=== PATIENT | female | born 1955 | race Caucasian/White ===

== ENCOUNTER 2024-02-09 12:01 | Emergency (ER) | payer OTHER ==
[~2024-02-09] VITALS: Ht 167.6 cm; Wt 74.5 kg
[2024-02-09 13:15] LABS: Basophils # (auto) 0.1 10 ^3/uL (0-0.2); Basophils % (auto) 1.1 % (0.0-2.0); Eosinophils # (auto) 0.2 10 ^3/uL (0-0.8); Eosinophils % (auto) 1.5 % (0.0-7.0); Hematocrit 42.4 % (36.0-46.0); Hemoglobin 13.8 g/dL (12.2-16.2); Lymphocytes # (auto) 2.1 10 ^3/uL (0.4-5.4); Lymphocytes % (auto) 18.5 % (10.0-50.0); Mean Corpuscular Hgb Conc. 32.5 g/dL (32.0-36.0); Mean Corpuscular Volume 92.3 fL (80.0-100.0); Monocytes % (auto) 9.4 % (0.0-12.0); Neutrophils # (auto) 7.7 10 ^3/uL (1.6-8.6); Neutrophils % (auto) 69.5 % (37.0-80.0); Nucleated Red Blood Cells % 0.1 %; Red Blood Cells 4.59 10^6/uL (4.0-5.20); Red Cell Distribution Width 13.6 % (11.8-14.3); White Blood Cell 11.1 10^3/uL (4.4-10.8)
[2024-02-09 13:30] LABS: Alanine Aminotransferase 13 U/L (7-40); Albumin 4.4 g/dL (3.2-4.8); Alkaline Phosphatase 180 U/L (46-116); Anion Gap 5 (5-15); Aspartate Aminotransferase 12 U/L (13-40); BUN/Creatinine Ratio 10.5 (10.0-20.0); Blood Urea Nitrogen 6 mg/dL (9-23); Calcium 9.8 mg/dL (8.5-10.1); Carbon Dioxide 30 mmol/L (20-30); Chloride 105 mmol/L (98-107); Glucose 125 mg/dL (74-106); Potassium 4.1 mmol/L (3.5-5.1); Sodium 140 mmol/L (136-145)
[2024-02-09 13:31] LABS: Bilirubin, Total 0.3 mg/dL (0.2-1.0); Total Protein 6.1 g/dL (5.7-8.2)
[2024-02-09 13:32] LABS: INR 1.09 (0.9-1.15); Prothrombin Time 11.5 sec (9.3-11.8)
[2024-02-09 15:45] VITALS: BP 159/92; PULSE 85; RESP 16; TEMP 98.2; O2SAT 95
== END 2024-02-09 17:38 | disposition left against medical advice (07) ==
LOC: ER 12:01
DX: S00.83XD Contusion of other part of head, subsequent encounter (principal); F20.9 Schizophrenia, unspecified; F17.210 Nicotine dependence, cigarettes, uncomplicated; W18.30XD Fall on same level, unspecified, subsequent encounter
CPT/HCPCS: 36415; 80053; 85025; 85610

== ENCOUNTER 2024-11-22 21:07 | Emergency (ER) | payer OTHER ==
[~2024-11-22] VITALS: Ht 162.6 cm; Wt 72.7 kg
[2024-11-22 22:39] VITALS: BP 155/75; PULSE 92; RESP 14; TEMP 98.1; O2SAT 92
--- NOTE | 2024-11-22 22:44 | ED.PDOC ---
History of Present Illness(SKN HPI Comments 69-year-old female presents to ER with complaints of rash x2 months. Patient presents VIA EMS, reporting that she has been experiencing a red itchy rash to bilateral lower legs x "2 months". Reports that she has been using [id number] calamine lotion on the rash with slight relief. Denies any pain. Denies fever, body aches, chills, skin drainage, known allergies, use of new soaps/detergents or any further symptoms/complaints Chief Complaint: Rash Time Seen by MD: 21:33 Primary Care Provider: ADDISON History of Present Illness: Nurses Notes, Medications, Allergies Allergies: Coded Allergies: NO KNOWN ALLERGIES (Unverified , 10/18/14) Home Meds Active Scripts Prednisone (Prednisone) 10 Mg Tab, 10 MG PO BID for 5 Days, #10 TAB 0 Refills Prov:JACQUI OROZCO 11/22/24 Loratadine (Claritin) 10 Mg Cap, 10 MG PO DAILY PRN, #24 CAP 0 Refills Prov:JACQUI OROZCO 11/22/24 Cephalexin Monohydrate (Cephalexin) 500 Mg Cap, 1 CAP PO BID for 7 Days, #14 CAP 0 Refills Prov:JACQUI OROZCO 11/22/24 Information Source: Patient Mode of Arrival: Ambulatory Past Medical History PAST MEDICAL HISTORY: CVA, Schizophrenia 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 History Family History Family History: Unknown Social History Smoker: Cigarettes, Less Than 1 Pack/Day Alcohol: Occasionally Drugs: Denies Drug Use Lives In: Home Constitutional: denies: chills, diaphoresis, fatigue, fever, malaise, sweats, weakness, others EENTM: denies: blurred vision, double vision, ear bleeding, ear discharge, ear drainage, ear pain, ear ringing, eye pain, eye redness, hearing loss, mouth pain, mouth swelling, nasal discharge, nose bleeding, nose congestion, nose pain, photophobia, tearing, throat pain, throat swelling, voice changes, others Respiratory: denies: cough, hemoptysis, orthopnea, SOB at rest, shortness of breath, SOB with excertion, stridor, wheezing, others Cardiovascular: denies: chest pain, dizzy spells, diaphoresis, Dyspnea on exertion, edema, irregular heart beat, left arm pain, lightheadedness, palpitations, PND, syncope, others Gastrointestinal: denies: abdomen distended, abdominal pain, blood streaked bowels, constipated, diarrhea, dysphagia, difficulty swallowing, hematemesis, melena, nausea, poor appetite, poor fluid intake, rectal bleeding, rectal pain, vomiting, others Genitourinary: denies: abnormal vagina bleeding, burning, dyspareunia, dysuria, flank pain, frequency, hematuria, incontinence, pain, , vagina discharge, urgency, others Neurological: denies: dizziness, fainting, headache, left sided numbness, left sided weakness, numbness, paresthesia, pre-existing deficit, right sided num bness, right sided weakness, seizure, speech problems, tingling, tremors, weakness, others Musculoskeletal: denies: back pain, gout, joint pain, joint swelling, muscle pain, muscle stiffness, neck pain, others Integumetry: reports: others ( STATED IN HPI) Allergic/Immunocompromised: denies: Difficulty Healing, Frequent Infections, Hives, Itching, others Hematologic/Lymphatic: denies: anemia, blood clots, easy bleeding, easy bruising, swollen glands, others Endocrine: denies: excessive hunger, excessive sweating, excessive thirst, excessive urination, flushing, intolerance to cold, intolerance to heat, unexplained weight gain, unexplained weight loss, others Psychiatric: denies: anxiety, bipolar disorder, depression, hopeless, panic disorder, schizophrenia, sleepless, suicidal, others Physical Exam General Appearance: No Apparent Distress HEENT: PERRL/EOMI Neck: Full Range of Motion, Non-Tender, Normal Respiratory: Chest Non-Tender, Lungs Clear, No Accessory Muscle Use, No Respiratory Distress, Normal Breath Sounds Cardiovascular: No Murmur, No Gallop, Regular Rate/Rhythm Breast Exam: Deferred Gastrointestinal: NOT DONE Genitalia: Deferred Pelvic: Deferred Rectal: Deferred Extremities: Normal capillary refill, Normal range of motion Neurologic: Alert, No Motor Deficits, Normal Affect, Normal Mood, No Sensory Deficits Cerebellar Function: Normal Reflexes: Normal Skin: Dry, Warm, Other (Mild erythema/minimal swelling and mild lichenification noted to anterior aspects of bilateral tibias that patient is noted to be itching. No papules/vesicles/bullae/skin drainage or open wounds noted) Peripheral Pulses: 2+ Radial (R), 2+ Radial (L), 2+ Brachial (R), 2+ Brachial (L) Lymphatic: No Adenopathy Was a procedure done? 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 IN 1-2 DAYS PATIENT VERBALIZED UNDERSTANDING AND AGREEABLE WITH CURRENT PLAN OF CARE ADVISED TO RETURN TO ER IMMEDIATELY IF SYMPTOMS WORSEN Time of 1ST Reevaluation: 22:42 Reevaluation 1ST: N/A Patient Education/Counseling: Diagnosis, Treatment, Prognosis, Need For Follow Up Family Education/Counseling: No Family Present Departure 1 Departure Time of Disposition: 22:54 Impression: Primary Impression: Contact dermatitis Qualified Codes: L25.9 - Unspecified contact dermatitis, unspecified cause Disposition: HOME / SELF CARE / HOMELESS Condition: Stable e-Prescriptions Prednisone (Prednisone) 10 Mg Tab 10 MG PO BID for 5 Days, #10 TAB 0 Refills Prov: JACQUI OROZCO 11/22/24 Loratadine (Claritin) 10 Mg Cap 10 MG PO DAILY PRN, #24 CAP 0 Refills Prov: JACQUI OROZCO 11/22/24 Cephalexin Monohydrate (Cephalexin) 500 Mg Cap 1 CAP PO BID for 7 Days, #14 CAP 0 Refills Prov: JACQUI OROZCO 11/22/24 Discharged With: Machine Filler Critical Care Note Critical Care Time?: No Stability Stability form required: No Heart Score Heart Score: Heart Score Response (Comments) Value History N/A 0 EKG N/A 0 Age N/A 0 Risk Factors N/A 0 Troponin N/A 0 Total 0 JACQUI OROZCO Nov 22, 2024 22:44
[2024-11-22] MEDS ORDERED: LORA10CA PO (22:52)
[2024-11-22] MEDS ORDERED: CEPH500C PO (22:52)
[2024-11-22] MEDS ORDERED: PRED10TA PO (22:52)
[2024-11-22] MEDS: cefTRIAXone SOD 1,000 MG VL IM ONE (22:59)
[2024-11-22] MEDS: methylPREDNISolone SOD SUCC 125 MG/2 ML VL IM ONE (22:59)
== END 2024-11-22 23:26 | disposition home or self-care (01) ==
LOC: ER 21:07 → EDBD 21:07 → ER 23:26
DX: L25.9 Unspecified contact dermatitis, unspecified cause (principal); F20.9 Schizophrenia, unspecified; F17.210 Nicotine dependence, cigarettes, uncomplicated; Z79.52 Long term (current) use of systemic steroids; Z98.890 Other specified postprocedural states
CPT/HCPCS: 96372; 99284; J0696; J2919

== ENCOUNTER 2024-12-08 10:50 | Emergency (ER) | payer OTHER ==
[~2024-12-08] VITALS: Ht 165.1 cm; Wt 90.0 kg
[~2024-12-08 10:50] MED LIST: CEPH500C PO; LORA10CA PO; PRED10TA PO
[2024-12-08 11:59] VITALS: BP 137/67; PULSE 97; RESP 17; TEMP 97.9; O2SAT 95
--- NOTE | 2024-12-08 12:09 | ED.PDOC ---
History of Present Illness(SKN HPI Comments A 69 YEAR OLD FEMALE BROUGHT IN BY AMBULANCE PRESENTS TO THE ED WITH COMPLAINT OF RASH. PATIENT STATES SHE HAS BEEN EXPERIENCING A RASH ON HER BILATERAL LEGS FOR THE PAST 2 WEEKS. PATIENT REPORTS SHE HAS BEEN EXPERIENCING ITCHING A RESULT OF HIS RASH AND HAS TRIED APPLYING CALAMINE LOTION TO THE RASH WITH MINIMAL IMPROVEMENT. PATIENT DENIES FEVER, CHILLS, SHORTNESS OF BREATH, CHEST PAIN, ABDOMINAL PAIN, NAUSEA, VOMITING, HEADACHE, OR OTHER COMPLAINTS. NO OTHER SYMPTOMS OR MODIFYING FACTORS AT THIS TIME. PATIENT IS ALERT, ORIENTED X 4, AND HAS STEADY GAIT. Chief Complaint: Rash Time Seen by MD: 11:09 Primary Care Provider: ADDISON History of Present Illness: Nurses Notes, Network Administrator Notes, Medications, Allergies Allergies: Coded Allergies: NO KNOWN ALLERGIES (Unverified , 10/18/14) Home Meds Active Scripts Cephalexin Monohydrate (Cephalexin) 500 Mg Cap, 1 CAP PO QID, #40 CAP Prov:HANNA GRANADO 12/08/24 Levofloxacin Hemihydrate (LEVAQUIN 500 MG) 500 Mg Tab, 1 TAB PO DAILY, #10 TAB Prov:HANNA GRANADO 12/08/24 Methylprednisolone (Medrol Dosepak) 4 Mg Hiram, 4 MG PO UD, #21 TAB UAD Prov:HANNA GRANADO 12/08/24 Prednisone (Prednisone) 10 Mg Tab, 10 MG PO BID for 5 Days, #10 TAB 0 Refills Prov:JACQUI OROZCO 11/22/24 Loratadine (Claritin) 10 Mg Cap, 10 MG PO DAILY PRN, #24 CAP 0 Refills Prov:JACQUI OROZCO 11/22/24 Cephalexin Monohydrate (Cephalexin) 500 Mg Cap, 1 CAP PO BID for 7 Days, #14 CAP 0 Refills Prov:JACQUI OROZCO 11/22/24 Information Source: Patient, Emergency Med Personnel Mode of Arrival: EMS Severity: Moderate Timing: Weeks Duration: Since onset Prehospital treatment: None Location: Leg (BILATERAL LOWER LEGS) Mechanism: Spontaneous Onset Developed: Rash Occurence: Indoors Object: None Condition of Object: None Retained Foreign Body: No Wound Type: None Immunization Status of Animal: NA Tetanus: Unknown History of: None Associated Signs and Symptoms: Redness, Pain Past Medical History PAST MEDICAL HISTORY: CVA, Schizophrenia 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 ELECTRONIC CONTROLS REPAIRER SUPERVISOR History Family History Family History: Reviewed,noncontributory to illness Social History Smoker: Cigarettes, Less Than 1 Pack/Day Alcohol: Occasionally Drugs: Denies Drug Use Lives In: Home Constitutional: denies: chills, diaphoresis, fatigue, fever, malaise, sweats, weakness, others EENTM: denies: blurred vision, double vision, ear bleeding, ear discharge, ear drainage, ear pain, ear ringing, eye pain, eye redness, hearing loss, mouth p ain, mouth swelling, nasal discharge, nose bleeding, nose congestion, nose pain, photophobia, tearing, throat pain, throat swelling, voice changes, others Respiratory: denies: cough, hemoptysis, orthopnea, SOB at rest, shortness of br eath, SOB with excertion, stridor, wheezing, others Cardiovascular: denies: chest pain, dizzy spells, diaphoresis, Dyspnea on exertion, edema, irregular heart beat, left arm pain, lightheadedness, palpitations, PND, syncope, others Gastrointestinal: denies: abdomen distended, abdominal pain, blood streaked bowels, constipated, diarrhea, dysphagia, difficulty swallowing, hematemesis, melena, nausea, poor appetite, poor fluid intake, rectal bleeding, rectal pain, vomiting, others Genitourinary: denies: abnormal vagina bleeding, burning, dyspareunia, dysuria, flank pain, frequency, hematuria, incontinence, pain, , vagina discharge, urgency, others Neurological: denies: dizziness, fainting, headache, left sided numbness, left sided weakness, numbness, paresthesia, pre-existing deficit, right sided numbness, right sided weakness, seizure, speech problems, tingling, tremors, weakness, others Musculoskeletal: denies: back pain, gout, joint pain, joint swelling, muscle pain, muscle stiffness, neck pain, others Integumetry: reports: rash (RASH OF BILATERAL LOWER LEGS); denies: bruises, change in color, change in hair/nails, dryness, laceration, lesions, lumps, wounds, others Allergic/Immunocompromised: denies: Difficulty Healing, Frequent Infections, Hives, Itching, others Hematologic/Lymphatic: denies: anemia, blood clots, easy bleeding, easy bruising, swollen glands, others Endocrine: denies: excessive hunger, excessive sweating, excessive thirst, excessive urination, flushing, intolerance to cold, intolerance to heat, unexplained weight gain, unexplained weight loss, others Psychiatric: denies: anxiety, bipolar disorder, depression, hopeless, panic disorder, schizophrenia, sleepless, suicidal, others All Other Systems: Reviewed and Negative Physical Exam General Appearance: No Apparent Distress, Normal HEENT: Normal ENT Inspection, PERRL/EOMI, Pharynx Normal, TMs Normal Neck: Full Range of Motion, Non-Tender, Normal, Normal Inspection Respiratory: Chest Non-Tender, Lungs Clear, No Accessory Muscle Use, No Respiratory Distress, Normal Breath Sounds Cardiovascular: No Edema, No JVD, No Murmur, No Gallop, Normal Peripheral Pulses, Regular Rate/Rhythm Breast Exam: Deferred Gastrointestinal: No Organomegaly, Non Tender, No Pulsatile Mass, Normal Bowel Sounds, Soft Genitalia: Deferred Pelvic: Deferred Rectal: Deferred Extremities: No calf tenderness, Normal capillary refill, Normal range of motion, No pedal edema, Tender (WITH SKIN RASH ON BILATERAL LOWER LEG, NO SWELLING AND OPEN WOUND, NO DVT SIGNS. 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 ), Warm Peripheral Pulses: 2+ carotid (R), 2+ carotid (L), 2+ dorsalis pedis (R), 2+ dorsalis pedis (L) Lymphatic: No Adenopathy Was a procedure done? Was a procedure done?: No Differential Diagnosis (INTG) Differential Diagnosis: Atopic dermatitis, Cellulitis, Contact Dermatitis, Erysipelas, Tinea, Urticaria Differential Diagnosis: N/A Abscess: N/A Differential Diagnosis: N/A X-Ray, Labs, Meds, VS Vital Signs Date Time Temp Pulse Resp B/P (MAP) Pulse Ox O2 Delivery O2 Flow Rate FiO2 12/08/24 11:59 97 17 95 Room Air 12/08/24 11:59 97.9 97 17 137/67 (90) 97 97.9 12/08/24 11:00 97.7 103 16 133/65 (87) 80 97.7 Current Medications Medications (Trade) Dose Ordered Sig/Aroldo Route Start Time Stop Time Status Last Admin Ceftriaxone Sodium (Rocephin) 1,000 mg ONCE ONCE IM 12/08/24 12:15 12/08/24 12:16 DC 12/08/24 12:25 Lidocaine HCl (Xylocaine 1%) 20 ml ONCE ONCE IJ 12/08/24 12:30 12/08/24 12:31 DC 12/08/24 12:31 X-Ray, Labs, Meds, VS Comment EXTERNAL MEDICAL RECORDS REVIEWED: [NONE] INDEPENDENT HISTORIANS: [NONE] SOCIAL DETERMINANTS OF HEALTH: [NONE] LABS ORDERED: NONE REVIEWED AND INTERPRETED RESULTS: NONE IMAGING ORDERED: NONE TREATMENTS ORDERED: ROCEPHIN 1 G IM PROCEDURES PERFORMED: NONE CRITICAL CARE TIME: NONE I HAVE DISCUSSED THE PATIENT WITH THE ATTENDING PHYSICIAN DR. SALINAS AND ALEX HAWLEY WITH THE PATIENT'S PLAN OF CARE AND DISPOSITION. BASED ON HISTORY OF PRESENT ILLNESS, AND PHYSICAL EXAM, PATIENT WILL BE DISCHARGED HOME. DISCUSSED PLAN FOR DISCHARGE HOME WITH RX [KEFLEX, LEVAQUIN AND MEDROL DOSE PACK]. MEDICATION WARNINGS GIVEN. SHARED DECISION MAKING: PATIENT INSTRUCTED TO FOLLOW UP WITH PRIMARY CARE PROVIDER IN 1-2 DAYS FOR RE-EVALUATION OF SYMPTOMS. PATIENT VERBALIZES UNDERSTANDING TO RETURN TO ED FOR NEW OR WORSENING SYMPTOMS OR IF FOLLOW UP WITH PCP CANNOT BE OBTAINED. PATIENT FEELS COMFORTABLE GOING HOME AT THIS TIME. ALL QUESTIONS ADDRESSED AT TIME OF DISCHARGE. Time of 1ST Reevaluation: 12:50 Reevaluation 1ST: Improved Patient Education/Counseling: Diagnosis, Treatment, Need For Follow Up Family Education/Counseling: Diagnosis, Treatment, Need For Follow Up Medical Screening: No EMC Exist At This Time Departure 1 Departure Time of Disposition: 13:00 Impression: Primary Impression: Contact dermatitis Qualified Codes: L25.9 - Unspecified contact dermatitis, unspecified cause Additional Impression: Suspected soft tissue infection Disposition: HOME / SELF CARE / HOMELESS Condition: Stable Additional Instructions: FOLLOW-UP WITH PCP IN 1 TO 2 DAYS. TAKE MEDICATIONS PRESCRIBED. RETURN TO ED FOR ANY NEW OR WORSENING SYMPTOMS. e-Prescriptions Cephalexin Monohydrate (Cephalexin) 500 Mg Cap 1 CAP PO QID, #40 CAP Prov: HANNA GRANADO 12/08/24 Levofloxacin Hemihydrate (LEVAQUIN 500 MG) 500 Mg Tab 1 TAB PO DAILY, #10 TAB Prov: HANNA GRANADO 12/08/24 Methylprednisolone (Medrol Dosepak) 4 Mg Hiram 4 MG PO UD, #21 TAB UAD Prov: HANNA GRANADO 12/08/24 Discharged With: Self Critical Care Note Critical Care Time?: No Stability Stability form required: No I personally scribed for HANNA GRANADO ([email or web address]) on 12/08/24 at 12:09. Electronically submitted by Refugio Brady ([email or web address]). HANNA GRANADO Dec 08, 2024 12:09
[2024-12-08] MEDS: cefTRIAXone SOD 1,000 MG VL IM ONE (12:25)
[2024-12-08] MEDS: LIDOCAINE 1% HCL (LOCAL ANESTH.) INJ 20ML MDV IJ ONE (12:31)
[2024-12-08] MEDS ORDERED: LEVO500T91 PO (12:35)
[2024-12-08] MEDS ORDERED: METH4PAK PO (12:35)
[2024-12-08] MEDS ORDERED: CEPH500C PO (12:35)
== END 2024-12-08 12:43 | disposition home or self-care (01) ==
LOC: EDBD 10:50 → ER 10:50
DX: L25.9 Unspecified contact dermatitis, unspecified cause (principal); F17.210 Nicotine dependence, cigarettes, uncomplicated; F20.9 Schizophrenia, unspecified; Z86.73 Personal history of transient ischemic attack (TIA), and cerebral infarction without residual deficits; Z98.890 Other specified postprocedural states; Z79.52 Long term (current) use of systemic steroids; Z79.899 Other long term (current) drug therapy
CPT/HCPCS: 96372; 99283; J0696; J2003

== ENCOUNTER 2024-12-25 11:13 | Emergency (ER) | payer OTHER ==
[~2024-12-25] VITALS: Ht 172.7 cm; Wt 75.0 kg
[~2024-12-25 11:13] MED LIST changes: +LEVO500T91 PO; +METH4PAK PO
--- NOTE | 2024-12-25 11:19 | ECG ---
[facility] Test Date: 2024-12-25 Test Time: 11:15:53 Pat Name: DANNA CARPIO Department: ED Room: Gender: F [place]: ORA : 1955 Requested By: LYNETTE RANDALL Order Number: [id number] Reading MD: Joe Lazaro Measurements Intervals [place] Rate: 101 P: 64 IN: 120 QRS: 57 QRSD: 82 T: 0 QT: 357 QTc: 463 Interpretive Statements Sinus tachycardia Probable anterior infarct, old Repol abnrm suggests ischemia, diffuse leads Electronically Signed On 12-27-2024 12:45:46 PDT by Joe Lazaro Please click the below link to view image of tracing.
[2024-12-25 11:28] VITALS: RESP 19; O2SAT 93
[2024-12-25 11:48] LABS: Chloride 102 mmol/L (98-107); Potassium 3.6 mmol/L (3.5-5.1); Sodium 143 mmol/L (136-145)
--- NOTE | 2024-12-25 11:48 | ED.PDOC ---
HPI Comments 69-year-old female who comes in with chief complaint of chest pain today. The patient states that she was at home and then started to experience some left- sided chest pain this morning. The patient denies any trauma. The pain happened at rest. The pain does not increase with palpation and is nonradiating. She denies any shortness a breath, nausea, vomiting or fever. She states that she has had this chest pain in the past. EN route, the paramedics gave the patient aspirin as well as one nitroglycerin. Initially she stated that the pain was an 8/10 and now the pain is down Chief Complaint: Chest Pain Time Seen by MD: 11:20 Primary Care Provider: UNKNOWN Reviewed Notes: Nurses Notes, [employer] Operator Notes, Medications, Allergies (No allergies to medications) Allergies: Coded Allergies: NO KNOWN ALLERGIES (Unverified , 10/18/14) Home Meds Active Scripts Levofloxacin Hemihydrate (LEVAQUIN 500 MG) 500 Mg Tab, 1 TAB PO DAILY, #10 TAB Prov:MADIHA MOSQUERA MD 12/25/24 Cephalexin Monohydrate (Cephalexin) 500 Mg Cap, 1 CAP PO QID, #40 CAP Prov:HANNA GRANADO 12/08/24 Levofloxacin Hemihydrate (LEVAQUIN 500 MG) 500 Mg Tab, 1 TAB PO DAILY, #10 TAB Prov:HANNA GRANADO 12/08/24 Methylprednisolone (Medrol Dosepak) 4 Mg [place], 4 MG PO UD, #21 TAB UAD Prov:HANNA GRANADO 12/08/24 Prednisone (Prednisone) 10 Mg Tab, 10 MG PO BID for 5 Days, #10 TAB 0 Refills Prov:JACQUI OROZCO 11/22/24 Loratadine (Claritin) 10 Mg Cap, 10 MG PO DAILY PRN, #24 CAP 0 Refills Prov:JACQUI OROZCO 11/22/24 Cephalexin Monohydrate (Cephalexin) 500 Mg Cap, 1 CAP PO BID for 7 Days, #14 CAP 0 Refills Prov:JACQUI OROZCO 11/22/24 Information Source: Emergency Med Personnel Mode of Arrival: EMS Severity: Moderate Timing: Hours Duration: Since onset Prehospital treatment: 12 Lead EKG, ASA, Oral And Maxillofacial Surgeon, NTG Location: Chest (L) Radiation: No Radiation Quality: Squeezing, Pressure Onset: At Rest Cardiac Risk Factors: Smoker, HTN, Diabetes History of: Similar pain in past Modifying Factors: Nothing Associated Signs and Symptoms: None Past Medical History PAST MEDICAL HISTORY: CVA, Depression, DM, Schizophrenia Surgical History: , Tonsillectomy Surgical History (Other): Stomach mass removal [employer] History: No Pertinent [employer] History Family History Family History: Unknown Social History Smoker: Cigarettes, Less Than 1 Pack/Day Alcohol: Occasionally Drugs: Marijuana Lives In: Home Constitutional: denies: chills, diaphoresis, fatigue, fever, malaise, sweats, weakness, others EENTM: denies: blurred vision, double vision, ear bleeding, ear discharge, ear drainage, ear pain, ear ringing, eye pain, eye redness, hearing loss, mouth pain, mouth swelling, nasal discharge, nose bleeding, nose congestion, nose pain , photophobia, tearing, throat pain, throat swelling, voice changes, others Respiratory: denies: cough, hemoptysis, orthopnea, SOB at rest, shortness of breath, SOB with excertion, stridor, wheezing, others Cardiovascular: reports: chest pain; denies: dizzy spells, diaphoresis, Dyspnea on exertion, edema, irregular heart beat, left arm pain, lightheadedness, palpitations, PND, syncope, others Gastrointestinal: denies: abdomen distended, abdominal pain, blood streaked bowels, constipated, diarrhea, dysphagia, difficulty swallowing, hematemesis, melena, nausea, poor appetite, poor fluid intake, rectal bleeding, rectal pain, vomiting, others Genitourinary: denies: abnormal vagina bleeding, burning, dyspareunia, dysuria, flank pain, frequency, hematuria, incontinence, pain, , vagina discharge, urgency, others Neurological: denies: dizziness, fainting, headache, left sided numbness, left sided weakness, numbness, paresthesia, pre-existing deficit, right sided numbness, right sided weakness, seizure, speech problems, tingling, tremors, weakness, others Musculoskeletal: denies: back pain, gout, joint pain, joint swelling, muscle pain, muscle stiffness, neck pain, others Integumetry: denies: bruises, change in color, change in hair/nails, dryness, laceration, lesions, lumps, rash, wounds, others Allergic/Immunocompromised: denies: Difficulty Healing, Frequent Infections, Hives, Itching, others Hematologic/Lymphatic: denies: anemia, blood clots, easy bleeding, easy bruising, swollen glands, others Endocrine: denies: excessive hunger, excessive sweating, excessive thirst, excessive urination, flushing, intolerance to cold, intolerance to heat, unexplained weight gain, unexplained weight loss, others Psychiatric: denies: anxiety, bipolar disorder, depression, hopeless, panic disorder, schizophrenia, sleepless, suicidal, others Physical Exam General Appearance: Moderate Distress, Obese HEENT: Normal ENT Inspection, Pharynx Normal, TMs Normal Neck: Full Range of Motion, Non-Tender, Normal, Normal Inspection Respiratory: Chest Non-Tender, Lungs Clear, No Accessory Muscle Use, No Respiratory Distress, Normal Breath Sounds Cardiovascular: No Edema, No JVD, No Murmur, No Gallop, Normal Peripheral Pulses, Regular Rate/Rhythm Breast Exam: Deferred Gastrointestinal: No Organomegaly, Non Tender, No Pulsatile Mass, Normal Bowel Sounds, Soft Genitalia: Deferred Pelvic: Deferred Rectal: Deferred Extremities: No calf tenderness, Normal capillary refill, Normal inspection, Normal range of motion, Non-tender, No pedal edema Musculoskeletal : Apperance: Normal Neurologic: Alert, axle inspector II-XII nml as Tested, Motor Weakness, Normal Affect, Normal Mood, No Sensory Deficits Cerebellar Function: Normal Reflexes: Normal Skin: Dry, Normal Color, Warm Lymphatic: No Adenopathy EKG EKG : Pulse Rate (adult): 101 [place]: Normal Cardiac Rhythm: ST Block: None ST: Nonsp Was a procedure done? Was a procedure done?: No CP Differential Dx Differential Diagnosis: Angina, MT Differential Diagnosis: CHF X-Ray, Labs, Meds, VS Vital Signs Date Time Temp Pulse Resp B/P (MAP) Pulse Ox O2 Delivery O2 Flow Rate FiO2 12/25/24 14:41 98.5 103 17 137/72 (93) 92 98.5 12/25/24 13:43 98.5 95 16 111/69 (83) 93 98.5 12/25/24 12:22 98 12/25/24 12:18 101 12/25/24 11:28 98.3 108 19 107/71 (83) 3 98.3 12/25/24 11:28 19 93 Room Air* 0 21 12/25/24 11:15 101 12/25/24 11:13 98.3 108 19 107/71 (83) 93 98.3 Lab Test 12/25/24 13:03 12/25/24 12:50 12/25/24 11:28 Range/Units Troponin I High Sensitivity 12 12 </=34 ng/L Urine Color Colorless Yellow Urine Clarity Clear Clear Urine pH 6.5 5.0-9.0 Urine Specific [place] 1.008 1.001-1.035 Urine Protein Negative Negative Urine Ketones Negative Negative Urine Blood Negative Negative /uL Urine Nitrite Negative Negative Urine Bilirubin Negative Negative Urine Urobilinogen Normal Negative mg/dL Urine Leukocyte Esterase Negative Negative /uL Urine RBC <1 0 - 4 /hpf Urine Microscopic WBC < 1 0-5 /HPF Urine Squamous Epithelial Cells Few <5 /hpf Urine Bacteria Few H None Seen /hpf Urine Glucose Normal Normal mg/dL White Blood Count 11.0 H 4.4-10.8 10^3/uL Red Blood Count 5.85 H 4.0-5.20 10^6/uL Hemoglobin 11.4 L 12.2-16.2 g/dL Hematocrit 38.6 36.0-46.0 % Mean Corpuscular Volume 66.0 L 80.0-100.0 fL Mean Corpuscular Hemoglobin 19.5 L 28.0-32.0 pg Mean Corpuscular Hemoglobin Concent 29.6 L 32.0-36.0 g/dL Red Cell Distribution Width 22.4 H 11.8-14.3 % Platelet Count 427 140-450 10^3/uL Mean Platelet Volume 6.8 L 6.9-10.8 fL Neutrophils (%) (Auto) 69.5 37.0-80.0 % Lymphocytes (%) (Auto) 18.3 10.0-50.0 % Monocytes (%) (Auto) 9.4 0.0-12.0 % Eosinophils (%) (Auto) 1.4 0.0-7.0 % Basophils (%) (Auto) 1.4 0.0-2.0 % Neutrophils # (Auto) 7.6 1.6-8.6 10 ^3/uL Lymphocytes # (Auto) 2.0 0.4-5.4 10 ^3/uL Monocytes # (Auto) 1.0 0-1.3 10 ^3/uL Eosinophils # (Auto) 0.2 0-0.8 10 ^3/uL Basophils # (Auto) 0.2 0-0.2 10 ^3/uL Nucleated Red Blood Cells 0.0 % Platelet Estimate Adequate Hypochromasia (manual) Marked Anisocytosis (manual) Slight Microcytosis Marked Sodium Level 143 136-145 mmol/L Potassium Level 3.6 3.5-5.1 mmol/L Chloride Level 102 98-107 mmol/L Carbon Dioxide Level 34 H 20-31 mmol/L Anion Gap 7 5-15 Blood Urea Nitrogen 6 L 9-23 mg/dL Creatinine 0.60 0.550-1.02 mg/dL Glomerular Filtration Rate Calc 97 >90 mL/min BUN/Creatinine Ratio 10.0 10.0-20.0 Serum Glucose 127 H 74-106 mg/dL Calcium Level 9.8 8.7-10.4 mg/dL CXR: FINDINGS: The cardiac silhouette is unremarkable. The lungs demonstrate patchy airspace opacities. The pulmonary vasculature is prominent. Possible small bilateral pleural effusions. There is no pneumothorax. Aortic atherosclerotic disease. IMPRESSION: 1. As above We called Dr. Mosquera who is the hospitalist on-call The patient's CBC shows an elevated white blood cell count of 11.0 The rest of the CBC is within normal limits The chemistry panel is within normal limits The urine test is negative At this time, the patient will be discharged by Dr. Mosquera. He placed the patient on Levaquin Images Reviewed?: Images reviewed and evaluated by me Time of 1ST Reevaluation: 13:40 Reevaluation 1ST: Unchanged Patient Education/Counseling: Diagnosis, Treatment, Prognosis, Need For Follow Up Family Education/Counseling: No Family Present Departure 1 Departure Time of Disposition: 13:40 Impression: Primary Impression: Community acquired pneumonia Qualified Codes: J18.9 - Pneumonia, unspecified organism Disposition: HOME / SELF CARE / HOMELESS Condition: Fair e-Prescriptions Levofloxacin Hemihydrate (LEVAQUIN 500 MG) 500 Mg Tab 1 TAB PO DAILY, #10 TAB Prov: MADIHA MOSQUERA MD 12/25/24 Discharged With: Self Critical Care Note Critical Care Time?: No Stability Stability form required: No Heart Score Heart Score: Heart Score Response (Comments) Value History N/A 0 EKG N/A 0 Age N/A 0 Risk Factors N/A 0 Troponin N/A 0 Total 0 I personally scribed for LYNETTE RANDALL MD ([email or web address]) on 12/25/24 at 13:29. Electronically submitted by Jordyn Méndez ([email or web address]). LYNETTE RANDALL MD December 25, 2024 11:48
[2024-12-25 11:49] LABS: Anion Gap 7 (5-15); Calcium 9.8 mg/dL (8.7-10.4)
[2024-12-25 11:50] LABS: Carbon Dioxide 34 mmol/L (20-31)
[2024-12-25 11:55] LABS: Blood Urea Nitrogen 6 mg/dL (9-23); Glucose 127 mg/dL (74-106)
--- NOTE | 2024-12-25 12:15 | DVH ---
CHEST RADIOGRAPH Indication: CP Technique: Single frontal view of the chest was obtained Comparison: None FINDINGS: The cardiac silhouette is unremarkable. The lungs demonstrate patchy airspace opacities. The pulmonar y vasculature is prominent. Possible small bilateral pleural effusions. There is no pneumothorax. Aor tic atherosclerotic disease. IMPRESSION: 1. As above
--- NOTE | 2024-12-25 12:24 | ECG ---
[facility] Test Date: 2024-12-25 Test Time: 12:22:50 Pat Name: DANNA CARPIO Department: ED Room: Gender: F [place] Nailer: ORA : 1955 Requested By: LYNETTE RANDALL Order Number: [id number] Reading MD: Joe Lazaro Measurements Intervals [place] Rate: 98 P: 65 KS: 118 QRS: 51 QRSD: 83 T: 108 QT: 355 QTc: 454 Interpretive Statements Sinus rhythm Borderline short [place] interval Probable left atrial enlargement Consider anterior infarct Borderline repolarization abnormality Electronically Signed On 12-27-2024 12:45:58 PDT by Joe Lazaro Please click the below link to view image of tracing.
[2024-12-25 12:30] LABS: Eosinophils # (auto) 0.2 10 ^3/uL (0-0.8); Mean Corpuscular Hemoglobin 19.5 pg (28.0-32.0)
[2024-12-25 12:31] LABS: Basophils # (auto) 0.2 10 ^3/uL (0-0.2); Basophils % (auto) 1.4 % (0.0-2.0); Eosinophils % (auto) 1.4 % (0.0-7.0); Hematocrit 38.6 % (36.0-46.0); Hemoglobin 11.4 g/dL (12.2-16.2); Lymphocytes % (auto) 18.3 % (10.0-50.0); Mean Corpuscular Hgb Conc. 29.6 g/dL (32.0-36.0); Monocytes % (auto) 9.4 % (0.0-12.0); Neutrophils # (auto) 7.6 10 ^3/uL (1.6-8.6); Neutrophils % (auto) 69.5 % (37.0-80.0); Platelet Count (auto) 427 10^3/uL (140-450); Red Blood Cells 5.85 10^6/uL (4.0-5.20)
[2024-12-25 12:35] LABS: Red Cell Distribution Width 22.4 % (11.8-14.3)
[2024-12-25 12:57] LABS: Platelet Estimate Adequate
[2024-12-25 12:58] LABS: Anisocytosis Slight; Hypochromia Marked
[2024-12-25] MEDS ORDERED: LEVO500T91 PO (13:19)
[2024-12-25 13:22] LABS: Urine Bacteria FEW /hpf (None Seen); Urine Blood Negative /uL (Negative); Urine Clarity Clear (Clear); Urine Color Colorless (Yellow); Urine Protein, UAD Negative (Negative); Urine Specific Gravity 1.008 (1.001-1.035); Urine Squamous Epithelial Cell FEW /hpf (<5); Urine Urobilinogen Normal (Negative); Urine WBC < 1 /HPF (0-5); Urine pH 6.5 (5.0-9.0)
[2024-12-25] MEDS: levoFLOXacin 500 MG TAB PO ONE (14:39)
[2024-12-25 14:41] VITALS: BP 137/72; PULSE 103; RESP 17; TEMP 98.5; O2SAT 92
[2024-12-25] MEDS: diphenhdrAMINE HCL 25 MG CAP PO ONE (14:51)
--- NOTE | 2025-01-09 09:25 | DVHDS2 ---
New Physician D'charge PN Admitting Diagnosis Admitting Diagnosis cp Discharge Diagnosis pna Operations or Procedures none Reason(s) For Hospitalization Surgery Hospital Course 69 F who comes to ER c/o CP. She describes it as nonradiating and dull. When she arrived to the ER her CBC showed a WBC of 11k and her chemistry panel was nml. She has 2 sets of troponins both which were normal. EKG showed sinus rhythm. She had a CXR done which revealed patchy opacities suggestive of PNA. She remained on room air with o2 sats >90% in no distress. She was given IV Abx in ER for PNA and will be discharged home with PO ABx to complete a course of community acquired PNA. Patient instructed to return to ER or call 911 should her symptoms worsen. She will be discharged home with outpt PCP follow up via [facility]. Patient in agreement with plan. Treatment Plan Discharge Condition of Discharge Good Disposition Home Discharge Instructions Diet: Cardiac 2g Na,low cholest Activity: No Restrictions, As Tolerated Medications: see med sheet Follow Up Care Follow Up/Referral: pcp cardio Discharge Statement: "Patient was advised to return to the ER or call 911 if any headaches, dizziness, shortness of breath, chest pain, abdominal pain, bleeding, fevers, or worsening of medical condition. Patient was counseled about treatment plan, medications, possible side effects, patientverbalized understanding. All questions were answered to the best of my ability. This discharge took greater then 30 minutes in planning, reviewing documentation, counseling the patient, and discussing with other team members." MADIHA MOSQUERA MD January 09, 2025 09:25
== END 2024-12-25 15:08 | disposition home or self-care (01) ==
LOC: EDBD 11:13 → EDUNIT# 11:13 → ER 11:20
DX: J18.9 Pneumonia, unspecified organism (principal); R07.89 Other chest pain; E11.9 Type 2 diabetes mellitus without complications; F32.A Depression, unspecified; F20.9 Schizophrenia, unspecified; F17.210 Nicotine dependence, cigarettes, uncomplicated; Z90.89 Acquired absence of other organs; Z98.890 Other specified postprocedural states
CPT/HCPCS: 36415; 71045; 80048; 81001; 82947; 84484; 85025; 93005

== ENCOUNTER 2025-04-26 00:14 | Emergency (ER) | payer OTHER ==
[~2025-04-26] VITALS: Ht 157.5 cm; Wt 79.5 kg
[2025-04-26 01:14] VITALS: TEMP 98.7
[2025-04-26 01:15] VITALS: O2SAT 90
[2025-04-26 01:40] LABS: Hemoglobin 9.0 g/dL (12.2-16.2)
[2025-04-26 01:43] LABS: Hematocrit 28.3 % (36.0-46.0); Mean Corpuscular Hemoglobin 21.4 pg (28.0-32.0); Mean Corpuscular Volume 67.4 fL (80.0-100.0); Nucleated Red Blood Cells % 0.1 %
--- NOTE | 2025-04-26 02:00 | DVH ---
CT BRAIN WITHOUT CONTRAST HISTORY: FALL INJURY TECHNIQUE: Axial scans were obtained from the skull base through the vertex without contrast. [place] l and coronal reformats were generated. One or more of the following radiation dose reduction techniq ues were used for this examination: automated exposure control, adjustment of the mA and/or kV accord ing to patient size, use of iterative reconstruction technique. COMPARISON: None Dose: CTDIvol: 91.56 mGy, DLP: 1802.91 mGy.cm FINDINGS: No acute territorial infarct, intracranial hemorrhage, or mass effect. There are global involutional changes with compensatory prominence of the ventricles and sulci. Patchy periventricular and subcorti scottie white matter hypoattenuation is nonspecific but may be related to small vessel ischemic disease. The orbits are normal. The paranasal sinuses and mastoid air cells are clear. Small left frontal sca lp hematoma and probable laceration without underlying fracture. IMPRESSION: 1. No acute territorial infarct, intracranial hemorrhage, or mass effect. 2. Age-related involutional changes. Chronic microvascular changes.
--- NOTE | 2025-04-26 02:08 | DVH ---
CHEST RADIOGRAPH Indication: FALL INJURY Technique: Single frontal view of the chest was obtained COMPARISON: XY CHEST PORTABLE on DOS: 12/25/24 FINDINGS: Lines and Tubes: None Lungs: Clear Pleura: No effusion. No pneumothorax. Cardiomediastinal contours: Unremarkable Bones: Unremarkable IMPRESSION: 1. No acute disease.
--- NOTE | 2025-04-26 02:12 | DVH ---
EXAM: CT CERVICAL WITHOUT CONTRAST HISTORY: FALL INJURY COMPARISON: None CTDIvol 26.51 mGy, DLP 648.14 mGy*cm. TECHNIQUE: Multiple axial CT images of the spine were obtained using bone algorithm. Axial and coron al reformatting was done. Bone and soft tissue windows were reviewed. FINDINGS: No CT evidence of definite acute fracture, spinal dislocation, or significant appearing acute subluxa tion is seen. The visualized paraspinal soft tissues are grossly unremarkable. Retrolisthesis of C5 on C6 measures approximately 4 mm. Severe C4-C5 through C6-C7 disc height loss with adjacent endplate sclerosis and anterior osteophytosis. Multilevel bilateral facet hypertrophy. IMPRESSION: 1. No definite CT evidence of acute fracture or dislocation of the bony cervical spine. 2. Moderate to severe degenerative change of the cervical spine including anterolisthesis of C5 on C6 .
[2025-04-26 02:17] LABS: Albumin 4.2 g/dL (3.2-4.8); Alkaline Phosphatase 112 U/L (46-116); Anion Gap 8 (5-15); BUN/Creatinine Ratio 15.0 (10.0-20.0); Calcium 9.2 mg/dL (8.7-10.4); Carbon Dioxide 30 mmol/L (20-31); Potassium 4.3 mmol/L (3.5-5.1); Total Protein 6.2 g/dL (5.7-8.2)
[2025-04-26 02:24] LABS: Alanine Aminotransferase < 9 U/L (7-40); Bilirubin, Total < 0.2 mg/dL (0.2-1.0); Blood Urea Nitrogen 9 mg/dL (9-23); Chloride 96 mmol/L (98-107); Glucose 137 mg/dL (74-106); Sodium 134 mmol/L (136-145)
[2025-04-26] MEDS: HYDROcodone-ACET 5/325MG TAB PO ONE (03:03)
--- NOTE | 2025-04-26 04:29 | ED.PDOC ---
HPI Comments Discharge diagnosis 01/09/25 pna HPI: 70-year-old female presents to the ED via EMS with a chief complaint of head injury onset last night. Per EMS, patient tripped on her rug, fell on the ground, hit her head. Patient was able to stand up, was experiencing dizziness upon EMS arrival they noticed a 3 in laceration on patient's forehead, bleeding is controlled, gauze was applied. Patient is states she is bed bound, fell forward hitting her head on the ground. Denies LOC, neck pain, fever, chills, chest pain, shortness a breath, blurred vision, numbness/tingling. No other symptoms or modifying factors present at this time. Initial Vitals BP: 122/64 HR: 72 RR: 17 O2: 96% Temp: 98.7 F Past Medical History: CVA, depression, DM, schizophrenia Past Surgical History: , tonsillectomy Social History: ETOH occasionally, smoke cigarettes, smokes marijuana Medications: Denies Allergies: NKDS POLE: fall. HPI: Poor Historian. Mechanical slip and fall from a standing position. No loss of consciousness. REVIEW OF SYSTEMS: CONSTITUTIONAL: Denies acute: fever, diaphoresis, chills, generalized weakness. HEAD: Denies acute: , photophobia Eyes: Denies acute: Double vision, vision loss, eye pain, eye discharge. EARS: Denies acute: tinnitus, hearing loss, ear discharge, ear pain, THROAT: Denies acute: sore throat, swelling, difficulty swallowing , pain with swallowing, change in voice. NECK: Denies acute: neck pain, neck swelling, stiff neck. HEART: Denies acute : chest pain, palpitations, LUNGS: Denies acute: SOB, wheezing, cough, hemoptysis ABDOMEN: Denies acute: abdominal pain, Nausea, Vomiting, diarrhea, melena , hematemesis, hematochezia SKIN: Denies acute: rash, redness, lesions, itchiness. EXTREMITIES: Denies acute: calf pain, numbness, tingling, weakness, denies pain in extremity. Denies acute: Low back pain. Neuro: Denies acute: focal neurological deficit, motor or sensory focal neurological deficit, tremors, seizure like activity, confusion, dizziness, change in mental status, loss of bowel or bladder function, cauda equina like symptoms. : Denies acute: dysuria, hematuria, flank pain, increase in urinary frequency. PSYCH: Denies acute: hallucination, suicidal ideation, homicidal ideation. FEMALE: Denies acute: abnormal vaginal bleeding, foul odor, unusual discharge. PHYSICAL EXAM: General: ----no----acute distress, awake and alert. Head: normocephalic, atraumatic. Noted forehead central laceration full- thickness in a C-shaped proximally 7 cm in length Cervical spine: Palpation of the posterior midline of the cervical spine reveals no focal swelling, erythema, focal tenderness to palpation. Patient has normal range of motion. Neck: supple, trachea is midline, no swelling. Throat: Normal phonation. Eyes:, no erythema, no purulent discharge, no proptosis, no icterus. Heart: regular rate, regular rhythm, no significant murmur appreciated. Lungs: no apparent respiratory distress, Able to speak in full sentences. No wheezing, no rhonchi, no crackles. No stridors Clear to auscultation bilaterally. Abdomen: non tender to palpation, non distended, soft, no guarding, no rebound, + bowel sounds. Neuro: Awake, Alert, oriented to name, self, situation, follows commands GCS=15. Speech is normal. Skin: no petechia, no purpura, no cyanosis, non-pale, not jaundice. Lower extremities: --trace bilateral- Pitting edema no deformity, no focal swelling, no calf TTP. Makes eye contact. moves all four extremities. Face: no apparent facial droop. No nuchal rigidity, Kernig's sign, Brudzinski's sign, no meningeal signs. ED COURSE: DISCLAIMER: This medical document was created using an electronic medical record system with voice recognition software and computerized dictation system. Although this document has been carefully reviewed, there might still be some phonetic and typographical errors. Occasional wrong-word or "sound-alike" substitutions may have occurred due to the inherent limitations of voice recognition software. These areas are purely typographical due to imperfections of the software programs and do not reflect any compromise in the patient's medical care. Please read the chart carefully and recognize, using context, where these substitutions have occurred. Chief Complaint: Fall Injury Time Seen by MD: 04:20 Primary Care Provider: UNKNOWN Reviewed Notes: Medications, Allergies Allergies: Coded Allergies: NO KNOWN ALLERGIES (Unverified , 10/18/14) Home Meds Active Scripts Levofloxacin Hemihydrate (LEVAQUIN 500 MG) 500 Mg Tab, 1 TAB PO DAILY, #10 TAB Prov:MADIHA MOSQUERA MD 12/25/24 Cephalexin Monohydrate (Cephalexin) 500 Mg Cap, 1 CAP PO QID, #40 CAP Prov:HANNA GRANADO 12/08/24 Levofloxacin Hemihydrate (LEVAQUIN 500 MG) 500 Mg Tab, 1 TAB PO DAILY, #10 TAB Prov:HANNA GRANADO 12/08/24 Methylprednisolone (Medrol Dosepak) 4 Mg Hiram, 4 MG PO UD, #21 TAB UAD Prov:HANNA GRANADO 12/08/24 Prednisone (Prednisone) 10 Mg Tab, 10 MG PO BID for 5 Days, #10 TAB 0 Refills Prov:JACQUI OROZCO 11/22/24 Loratadine (Claritin) 10 Mg Cap, 10 MG PO DAILY PRN, #24 CAP 0 Refills Prov:JACQUI OROZCO 11/22/24 Cephalexin Monohydrate (Cephalexin) 500 Mg Cap, 1 CAP PO BID for 7 Days, #14 CAP 0 Refills Prov:JACQUI OROZCO 11/22/24 Information Source: Patient, Emergency Med Personnel Mode of Arrival: EMS Severity: Moderate Severity of Laceration: Controlled Bleeding Complexity: Intermediate Timing: Hours Prehospital treatment: None Laceration Location: Head Mechanism: Fall Laceration Length (cm): 7 Skin Type: Linear Capillary Refill: < 3 seconds Tender: Moderate Past Medical History PAST MEDICAL HISTORY: CVA, Depression, DM, Schizophrenia Surgical History: , Tonsillectomy 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 Was a procedure done?: Yes Sedation Sedation?: No Laceration Repair : Location middle forehead Length 7 cm Anesthetic: Lidocaine (5 ccs), With epi (2%) Laceration Repair Prep: Saline Laceration Repair: Number of sutures (9), Size (4.0 Ethilon) Informed consent obtained: Yes Risks, benefits, and alternati: Yes Notes full thickness to the ostium Differential diagnosis Generic Laceration: Hematoma, Fracture, Retained Foriegn Body, Neurovascular Injury, Tendon Injury, Abrasion/Contusion, Laceration, Other (Spine injury, concussion) Differential Diagnosis: Closed Head Injury, Skull Fracture X-Ray, Labs, Meds, VS Vital Signs Date Time Temp Pulse Resp B/P (MAP) Pulse Ox O2 Delivery O2 Flow Rate FiO2 04/26/25 05:00 66 18 130/63 (85) 95 04/26/25 03:00 72 17 122/64 (83) 96 04/26/25 01:15 90 Room Air* 0 21 04/26/25 01:14 98.7 74 19 121/55 (77) 90 98.7 04/26/25 00:20 97.7 81 22 116/68 93 97.7 Lab Test 04/26/25 02:08 04/26/25 01:04 Range/Units Troponin I High Sensitivity 8 9 </=34 ng/L White Blood Count 9.5 4.4-10.8 10^3/uL Red Blood Count 4.20 4.0-5.20 10^6/uL Hemoglobin 9.0 L 12.2-16.2 g/dL Hematocrit 28.3 L 36.0-46.0 % Mean Corpuscular Volume 67.4 L 80.0-100.0 fL Mean Corpuscular Hemoglobin 21.4 L 28.0-32.0 pg Mean Corpuscular Hemoglobin Concent 31.8 L 32.0-36.0 g/dL Red Cell Distribution Width 18.4 H 11.8-14.3 % Platelet Count 521 H 140-450 10^3/uL Mean Platelet Volume 6.6 L 6.9-10.8 fL Neutrophils (%) (Auto) 73.9 37.0-80.0 % Lymphocytes (%) (Auto) 14.7 10.0-50.0 % Monocytes (%) (Auto) 7.7 0.0-12.0 % Eosinophils (%) (Auto) 2.5 0.0-7.0 % Basophils (%) (Auto) 1.2 0.0-2.0 % Neutrophils # (Auto) 7.0 1.6-8.6 10 ^3/uL Lymphocytes # (Auto) 1.4 0.4-5.4 10 ^3/uL Monocytes # (Auto) 0.7 0-1.3 10 ^3/uL Eosinophils # (Auto) 0.2 0-0.8 10 ^3/uL Basophils # (Auto) 0.1 0-0.2 10 ^3/uL Nucleated Red Blood Cells 0.1 % Sodium Level 134 L 136-145 mmol/L Potassium Level 4.3 3.5-5.1 mmol/L Chloride Level 96 L 98-107 mmol/L Carbon Dioxide Level 30 20-31 mmol/L Anion Gap 8 5-15 Blood Urea Nitrogen 9 9-23 mg/dL Creatinine 0.60 0.550-1.02 mg/dL Glomerular Filtration Rate Calc 96 >90 mL/min BUN/Creatinine Ratio 15.0 10.0-20.0 Serum Glucose 137 H 74-106 mg/dL Calcium Level 9.2 8.7-10.4 mg/dL Total Bilirubin < 0.2 L 0.2-1.0 mg/dL Aspartate Amino Transferase (AST) 11 L 13-40 U/L Alanine Aminotransferase (ALT) < 9 7-40 U/L Alkaline Phosphatase 112 46-116 U/L Total Protein 6.2 5.7-8.2 g/dL Albumin 4.2 3.2-4.8 g/dL Current Medications Medications (Trade) Dose Ordered Sig/Aroldo Route Start Time Stop Time Status Last Admin Acetaminophen/ Hydrocodone Bitart ([place] 5/325MG Tab) 1 tab ONCE ONCE PO 04/26/25 02:45 04/26/25 02:46 DC 04/26/25 03:[address] [address] Ph: [phone] DIAGNOSTIC IMAGING Diagnostic Imaging Report : [id number] Signed PATIENT: DANNA CARPIO ACCT: [id number] UNIT: [id number] : 1955 LOC: ER ROOM / BED: / AGE / SEX: 70 / F ADM STATUS: REG ER SERVICE [id number] ORDERING PHYSICIAN: LUCRETIA BORDEN DO PROCEDURE(s): HWOCT - HEAD WITHOUT CONTRAST REASON: FALL INJURY ORDER NUMBER(s): [id number], ACCESSION NUMBER(s): [id number] CT BRAIN WITHOUT CONTRAST HISTORY: FALL INJURY TECHNIQUE: Axial scans were obtained from the skull base through the vertex w ithout contrast. Sagittal and coronal reformats were generated. One or more of the following radiation dose reduction techniques were used for this examination: automated exposure control, adjustment of the mA and/or kV according to patient size, use of iterative reconstruction technique. COMPARISON: None Dose: CTDIvol: 91.56 mGy, DLP: 1802.91 mGy.cm FINDINGS: No acute territorial infarct, intracranial hemorrhage, or mass effect. There are global involutional changes with compensatory prominence of the ventricles and sulci. Patchy periventricular and subcortical white matter hypoattenuation is nonspecific but may be related to small vessel ischemic disease. The orbits are normal. The paranasal sinuses and mastoid air cells are clear. Small left frontal scalp hematoma and probable laceration without underlying fracture. IMPRESSION: 1. No acute territorial infarct, intracranial hemorrhage, or mass effect. 2. Age-related involutional changes. Chronic microvascular changes. ATED BY: ELISA CASTILLO MD DICTATED DATE/TIME: 04/26/25157 SIGNED BY: ELISA CSATILLO MD SIGNED DATE/TIME: 04/26/25157 CC: [place] [address] Ph: [phone] DIAGNOSTIC IMAGING Diagnostic Imaging Report : [id number] Signed PATIENT: DANNA CARPIO ACCT: [id number] UNIT: [id number] : 1955 LOC: ER ROOM / BED: / AGE / SEX: 70 / F ADM STATUS: REG ER SERVICE ORDERING PHYSICIAN: LUCRETIA BORDEN DO PROCEDURE(s): CXR1 - CHEST XRAY 1 VIEW REASON: FALL INJURY ORDER NUMBER(s): [id number], ACCESSION NUMBER(s): [id number] CHEST RADIOGRAPH Indication: FALL INJURY Technique: Single frontal view of the chest was obtained COMPARISON: XY CHEST PORTABLE on DOS: 12/25/24 FINDINGS: Lines and Tubes: None Lungs: Clear Pleura: No effusion. No pneumothorax. Cardiomediastinal contours: Unremarkable Bones: Unremarkable IMPRESSION: 1. No acute disease. ATED BY: IKE BRAUN MD DICTATED DATE/TIME: 04/26/25205 SIGNED BY: IKE BRAUN MD SIGNED DATE/TIME: 04/26/25205 CC: [place] [address] Ph: [phone] DIAGNOSTIC IMAGING Diagnostic Imaging Report : [id number] Signed PATIENT: DANNA CARPIO ACCT: [id number] UNIT: [id number] : 1955 LOC: ER ROOM / BED: / AGE / SEX: 70 / F ADM STATUS: REG ER SERVICE ORDERING PHYSICIAN: LUCRETIA BORDEN DO PROCEDURE(s): CS2 - CERVICAL WITHOUT CONTRAST REASON: FALL INJURY ORDER NUMBER(s): [id number], ACCESSION NUMBER(s): [id number] EXAM: CT CERVICAL WITHOUT CONTRAST HISTORY: FALL INJURY COMPARISON: None CTDIvol 26.51 mGy, DLP 648.14 mGy*cm. TECHNIQUE: Multiple axial CT images of the spine were obtained using bone algorithm. Axial and coronal reformatting was done. Bone and soft tissue windows were reviewed. FINDINGS: No CT evidence of definite acute fracture, spinal dislocation, or significant appearing acute subluxation is seen. The visualized paraspinal soft tissues are grossly unremarkable. Retrolisthesis of C5 on C6 measures approximately 4 mm. Severe C4-C5 through C6-C7 disc height loss with adjacent endplate sclerosis and anterior osteophytosis. Multilevel bilateral facet hypertrophy. IMPRESSION: 1. No definite CT evidence of acute fracture or dislocation of the bony cervical spine. 2. Moderate to severe degenerative change of the cervical spine including anterolisthesis of C5 on C6. ATED BY: IKE BRAUN MD DICTATED DATE/TIME: 04/26/25208 SIGNED BY: IKE BRAUN MD SIGNED DATE/TIME: 04/26/25 0209 CC: Time of 1ST Reevaluation: 04:50 Reevaluation 1ST: Unchanged Time of 2ND Reevaluation: 00:00 Reevaluation 2ND: Improved Patient Education/Counseling: Diagnosis, Treatment Family Education/Counseling: No Family Present Comments MDM: patient presented with the above HPI.--falls/closed head injury/forehead laceration----workup was initiated. patient was found with the above mentioned diagnosis. the following medications were ordered: please refer to order lists of meds and tests obtained by myself Dr. Borden. Patient ED course and VS have been stabilized. Patient has been reassessed in [facility] ED and remained in a stable condition. Pertinent incidental findings were discussed with the patient and/or family. Patient/family voices understanding and is agreeable with plan. Patient has been observed in the ED adequate length of time to insure improvement/stability. Escalation of care considered: Consideration of escalation to observation or admission Laceration repair performed successfully. Patient is at her baseline. Denies any other acute complaints. Wound care instructions given to the patient. Patient was DISCHARGED home in a stable condition. All the reports of any imaging studies that were ordered by myself were reviewed by myself. Departure 1 Departure Time of Disposition: 04:57 Impression: Primary Impression: Closed head injury Additional Impressions: Fall Anemia Forehead laceration Disposition: 01 HOME / SELF CARE / HOMELESS Condition: Other Additional Instructions: Additional instructions: Please read all instructions provided in this packet carefully. You MUST follow-up with your primary care/family doctor in 1 to 2 days. If you are unable to see your primary care/family doctor, please return to our emergency room for re-assessment and re-evaluation in 1 to 2 days. Return to the emergency room here in our facility or to the nearest ER [facility] if your symptoms change or worsen. CONSULTATIONS: you MUST Follow-up for consultation as soon as possible with: -neurology and cardiology in 1-2 days. Please call for appointment. You MUST call the consultants office yourself to make an appointment. You may need to arrange that through your insurance and/or your primary/family doctor. If you are unable to see the weight loss sales consultant in 1 to 2 days, you must return to our e mergency room (or any other ER of your choice) for re-assessment and re- evaluation. Adequate fluid hydration. Although you have been discharged from the Emergency Department, this does not mean that you have a "clean bill of health". No definitive diagnosis for your symptoms has been made today. It is possible that you are in the process of developing a serious illness. This is why you must return to the ED without fail if any new or worsening symptoms develop. Suture removal in seven days. Do not submerge your head under water in the next 48 hours. Keep the wound clean and covered. Apply [id number] bacitracin ointment twice a day. Avoid sun exposure to minimize the scar on your forehead. Below is a copy of your radiological report for follow up: [place] [address] Ph: [phone] DIAGNOSTIC IMAGING Diagnostic Imaging Report : [id number] Signed PATIENT: DANNA CARPIO ACCT: [id number] UNIT: [id number] : 1955 LOC: ER ROOM / BED: / AGE / SEX: 70 / F ADM STATUS: REG ER SERVICE 0049 ORDERING PHYSICIAN: LUCRETIA BORDEN DO PROCEDURE(s): HWOCT - HEAD WITHOUT CONTRAST REASON: FALL INJURY ORDER NUMBER(s): [id number], ACCESSION NUMBER(s): [id number] CT BRAIN WITHOUT CONTRAST HISTORY: FALL INJURY TECHNIQUE: Axial scans were obtained from the skull base through the vertex without contrast. Sagittal and coronal reformats were generated. One or more of the following radiation dose reduction techniques were used for this examination: automated exposure control, adjustment of the mA and/or kV according to patient size, use of iterative reconstruction technique. COMPARISON: None Dose: CTDIvol: 91.56 mGy, DLP: 1802.91 mGy.cm FINDINGS: No acute territorial infarct, intracranial hemorrhage, or mass effect. There are global involutional changes with compensatory prominence of the ventricles and sulci. Patchy periventricular and subcortical white matter hypoattenuation is nonspecific but may be related to small vessel ischemic disease. The orbits are normal. The paranasal sinuses and mastoid air cells are clear. Small left frontal scalp hematoma and probable laceration without underlying fracture. IMPRESSION: 1. No acute territorial infarct, intracranial hemorrhage, or mass effect. 2. Age-related involutional changes. Chronic microvascular changes. ATED BY: ELISA CASTILLO MD DICTATED DATE/TIME: 04/26/25157 SIGNED BY: ELISA CASTILLO MD SIGNED DATE/TIME: 04/26/25157 CC: [place] [address] Ph: [phone] DIAGNOSTIC IMAGING Diagnostic Imaging Report : [id number] Signed PATIENT: DANNA CARPIO ACCT: [id number] UNIT: [id number] : 1955 LOC: ER ROOM / BED: / AGE / SEX: 70 / F ADM STATUS: REG ER SERVICE ORDERING PHYSICIAN: LUCRETIA BORDEN DO PROCEDURE(s): CXR1 - CHEST XRAY 1 VIEW REASON: FALL INJURY ORDER NUMBER(s): [id number], ACCESSION NUMBER(s): [id number] CHEST RADIOGRAPH Indication: FALL INJURY Technique: Single frontal view of the chest was obtained COMPARISON: XY CHEST PORTABLE on DOS: 12/25/24 FINDINGS: Lines and Tubes: None Lungs: Clear Pleura: No effusion. No pneumothorax. Cardiomediastinal contours: Unremarkable Bones: Unremarkable IMPRESSION: 1. No acute disease. ATED BY: IKE BRAUN MD DICTATED DATE/TIME: 04/26/25205 SIGNED BY: IKE BRAUN MD SIGNED DATE/TIME: 04/26/25205 CC: [place] [id number] Ph: [phone] DIAGNOSTIC IMAGING Diagnostic Imaging Report : [id number] Signed PATIENT: DANNA CARPIO ACCT: [id number] UNIT: [id number] : 1955 LOC: ER ROOM / BED: / AGE / SEX: 70 / F ADM STATUS: REG ER SERVICE ORDERING PHYSICIAN: LUCRETIA BORDEN DO PROCEDURE(s): CS2 - CERVICAL WITHOUT CONTRAST REASON: FALL INJURY ORDER NUMBER(s): [id number], ACCESSION NUMBER(s): [id number] EXAM: CT CERVICAL WITHOUT CONTRAST HISTORY: FALL INJURY COMPARISON: None CTDIvol 26.51 mGy, DLP 648.14 mGy*cm. TECHNIQUE: Multiple axial CT images of the spine were obtained using bone algorithm. Axial and coronal reformatting was done. Bone and soft tissue windows were reviewed. FINDINGS: No CT evidence of definite acute fracture, spinal dislocation, or significant appearing acute subluxation is seen. The visualized paraspinal soft tissues are grossly unremarkable. Retrolisthesis of C5 on C6 measures approximately 4 mm. Severe C4-C5 through C6-C7 disc height loss with adjacent endplate sclerosis and anterior osteophytosis. Multilevel bilateral facet hypertrophy. IMPRESSION: 1. No definite CT evidence of acute fracture or dislocation of the bony cervical spine. 2. Moderate to severe degenerative change of the cervical spine including anterolisthesis of C5 on C6. ATED BY: IKE BRAUN MD DICTATED DATE/TIME: 04/26/25208 SIGNED BY: IKE BRAUN MD SIGNED DATE/TIME: 04/26/25208 Discharged With: Self Critical Care Note Critical Care Time?: No I personally scribed for LUCRETIA BORDEN DO ([email or web address]) on 04/26/25 at 04:29. Electronically submitted by Vania Manuel ([email or web address]). I personally scribed for LUCRETIA BORDEN DO ([email or web address]) on 04/26/25 at 04:32. Electronically submitted by Vania Manuel ([email or web address]). I personally scribed for LUCRETIA BORDEN DO ([email or web address]) on 04/26/25 at 04:45. Electronically submitted by Vania Manuel ([email or web address]). I personally scribed for LUCRETIA BORDEN DO ([email or web address]) on 04/26/25 at 04:47. Electronically submitted by Vania Manuel ([email or web address]). I personally scribed for LUCRETIA BORDEN DO ([email or web address]) on 04/26/25 at 04:58. Electronically submitted by Vania Manuel ([email or web address]). LUCRETIA BORDEN DO Apr 26, 2025 04:29
[2025-04-26] MEDS: LIDOCAINE W/ EPINEPHRINE 2% INJ 20ML VIAL ONE (04:52)
[2025-04-26 05:00] VITALS: BP 130/63; PULSE 66; RESP 18; O2SAT 95
== END 2025-04-26 07:45 | disposition home or self-care (01) ==
LOC: EDBD 00:14 → ER 00:14
DX: S01.81XA Laceration without foreign body of other part of head, initial encounter (principal); D64.9 Anemia, unspecified; E11.9 Type 2 diabetes mellitus without complications; F12.90 Cannabis use, unspecified, uncomplicated; F17.210 Nicotine dependence, cigarettes, uncomplicated; F20.9 Schizophrenia, unspecified; J18.9 Pneumonia, unspecified organism; F32.A Depression, unspecified; Z86.73 Personal history of transient ischemic attack (TIA), and cerebral infarction without residual deficits; Z90.89 Acquired absence of other organs; Z98.890 Other specified postprocedural states; W01.0XXA Fall on same level from slipping, tripping and stumbling without subsequent striking against object, initial encounter; Y93.89 Activity, other specified; Y92.89 Other specified places as the place of occurrence of the external cause; Y99.8 Other external cause status
CPT/HCPCS: 12014; 36415; 70450; 71045; 72125; 80053; 82962; 84484; 85025